=== PATIENT | male | born 1955 | race Caucasian/White ===

== ENCOUNTER → 2016-05-31 | Outpatient (CLI) | payer BC ==
[~2016-05-31] MED LIST: ASPI325T32 PO; HYDR-3498 PO; ULT50 PO
--- NOTE | 2016-05-31 13:55 | RADRPT ---
PROCEDURE: XR Left Hip and pelvis. CLINICAL INDICATION: Left hip pain. Pelvic pain. Postop. TECHNIQUE: Three views. Frontal pelvis. Frontal and lateral left hip. COMPARISON: 03/24/2016. FINDINGS: There is no fracture or dislocation. The soft tissues are normal. There is a left hip total arthroplasty which appears satisfactory. There is no lytic or blastic lesion. There is also a right hip total arthroplasty which appears satisfactory. The upper pelvis is not included on the image. IMPRESSION: 1. Satisfactory postoperative appearance of both hips. 2. Otherwise unremarkable study. RPTAT: QQ .Christiano Campbell MD, MD Date Time Electronically viewed and signed by .Christiano Campbell MD, on 05/31/2016 13:55 .R/
== END | disposition home or self-care (01) ==
LOC: HKI 10:37
PROVIDERS: ATTEND Orthopaedic Surgery
DX: Z47.1 Aftercare following joint replacement surgery (principal); Z96.643 Presence of artificial hip joint, bilateral
CPT/HCPCS: 73502; G0463